=== PATIENT | male | born 1995 | race Caucasian/White ===

== ENCOUNTER 2024-09-09 22:25 | Emergency (ER) | payer OTHER ==
[~2024-09-09] VITALS: Ht 167.6 cm; Wt 86.4 kg
[2024-09-09 22:32] VITALS: BP 127/78; PULSE 99; RESP 16; TEMP 98.1; O2SAT 100
== END 2024-09-10 03:19 | disposition left against medical advice (07) ==
LOC: EMS 22:25
DX: T14.8XXA Other injury of unspecified body region, initial encounter (principal); Z53.21 Procedure and treatment not carried out due to patient leaving prior to being seen by health care provider